=== PATIENT | female | born 1975 | race Caucasian/White ===

== ENCOUNTER 2017-06-27 09:20 | Day surgery (SDC) | payer OTHER ==
[~2017-06-27 09:20] MED LIST: PROPOFOL 500 MG/50 ML EMU IV ONE
[2017-06-27 10:46] VITALS: RESP 18; O2SAT 100
[2017-06-27 12:11] VITALS: BP 118/76; PULSE 68; TEMP 97.4
== END 2017-06-27 11:40 | disposition home or self-care (01) | DRG 951 ==
LOC: SURG 09:20
PROVIDERS: ATTEND Surgery
DX: Z86.018 Personal history of other benign neoplasm (principal)
CPT/HCPCS: J2704